=== PATIENT | female | born 1940 | race Caucasian/White ===

== ENCOUNTER 2017-08-30 14:29 | Observation (INO) | payer OTHER ==
[~2017-08-30] VITALS: Ht 162.6 cm; Wt 61.5 kg
[~2017-08-30 14:29] MED LIST: ADULT LOW DOSE81 M1 PO; ASPIRIN E.C.81 M1 PO; EMS NITROSTAT0.4 M1 SL; ISOSORBIDE MONO30 MG PO; KEPPRA500 MG PO; LIPITOR20 MG PO; METFORMIN HCL500 MG PO; PLAVIX75 MG PO; SYNTHROID88 MCG PO; TOPROL XL6.25 MG PO; aspirin PO
[2017-08-30 15:24] LABS: EOSINOPHIL (%) 1.8 % (0-5); EOSINOPHIL COUNT 0.1 K/uL (0-0.3); HEMATOCRIT 37.8 % (36.0-46.0); IMMATURE GRANULOCYTE (%) 0.3 % (0.0-0.7); INSTRUMENT ABS NEUTROPHIL CT 4.8 K/uL; LYMPHOCYTE COUNT 1.3 K/uL (1.0-2.8); MCH 30.7 PG (29.0-34.0); MCHC 33.1 G/DL (30.0-36.0); MCV 92.9 FL (83-99); MEAN PLAT.VOLUME 10.2 uM^3 (9.5-12.4); MONOCYTE (%) 7.5 % (3-12); MONOCYTE COUNT 0.5 K/uL (0-0.8); NEUTROPHIL (%) 70.8 % (45-76); NEUTROPHIL COUNT 4.8 K/uL (1.8-6.4); PLATELET COUNT 213 K/uL (156-360); RBC DIS.WIDTH-CV 11.6 % (11.8-14.6); RBC DIS.WIDTH-SD 39.6 % (39-53); RED BLOOD COUNT 4.07 M/uL (3.80-5.20); WHITE BLOOD COUNT 6.7 K/uL (4.1-10.2)
[2017-08-30 15:30] LABS: PROTHROMBIN TIME 11.3 SEC (10.2-12.9)
[2017-08-30 15:33] LABS: PTT 27.6 SEC (25-37)
[2017-08-30 15:34] LABS: CHLORIDE 104 mEq/L (99-109); POTASSIUM 4.2 mEq/L (3.7-5.4); SODIUM 138 mEq/L (136-147)
[2017-08-30 15:36] LABS: GLUCOSE 169 mg/dL (70-99)
[2017-08-30 15:37] LABS: ANION GAP 8 MEQ/L (2-14)
[2017-08-30 15:38] LABS: TOTAL BILIRUBIN 0.4 mg/dL (0.0-1.0)
[2017-08-30 15:40] LABS: ALKALINE PHOSPHATASE 107 IU/L (3-129); GFR ESTIMATE (CALCULATED) 51 mL/min/
[2017-08-30 15:41] LABS: UREA NITROGEN (BUN) 16 mg/dL (9-23)
[2017-08-30 15:42] LABS: DIRECT BILIRUBIN 0.1 mg/dL (0.0-0.3)
[2017-08-30 15:43] LABS: LIPASE 38 U/L (1.0-51.0)
[2017-08-30 15:45] LABS: TROP-I INTERPRETATION NEGATIVE; TROPONIN-I < 0.01 ng/mL (0.0-0.30)
[2017-08-30 17:14] VITALS: BP 138/80
[2017-08-30 17:24] LABS: TROP-I INTERPRETATION NEGATIVE; TROPONIN-I < 0.01 ng/mL (0.0-0.30)
[2017-08-30 17:28] LABS: HDL CHOLESTEROL 51 MG/DL (Desirable>=50); LDL CHOLESTEROL 46 mg/dL (Desirable<100); NON-HDL CHOLESTEROL 69 mg/dL (Desirable<160); TOTAL CHOLESTEROL 120 mg/dL (Desirable<200); TRIGLYCERIDES 113 MG/DL (Normal: <150)
[2017-08-30 19:18] VITALS: BP 115/61
[2017-08-30 22:46] LABS: TROP-I INTERPRETATION NEGATIVE; TROPONIN-I < 0.01 ng/mL (0.0-0.30)
[2017-08-30 23:15] VITALS: BP 108/53
[2017-08-31 03:25] VITALS: BP 128/60
[2017-08-31 07:32] VITALS: BP 134/63
== END 2017-08-31 10:30 | disposition home or self-care (01) ==
LOC: EME 14:29 → EDOF 16:14 → ENRESERV 16:15 → 5WEST 17:01 → ENPENDDIS 08-31 → 5WEST 08-31 10:30
PROVIDERS: Emergency Medicine; Hospitalist
DX: R07.9 Chest pain, unspecified (principal); I25.10 Atherosclerotic heart disease of native coronary artery without angina pectoris; Z95.5 Presence of coronary angioplasty implant and graft; E11.9 Type 2 diabetes mellitus without complications; E03.9 Hypothyroidism, unspecified; Z82.49 Family history of ischemic heart disease and other diseases of the circulatory system; Z80.3 Family history of malignant neoplasm of breast; Z80.49 Family history of malignant neoplasm of other genital organs; Z82.3 Family history of stroke; Z88.0 Allergy status to penicillin; Z88.2 Allergy status to sulfonamides; Z88.7 Allergy status to serum and vaccine; Z88.5 Allergy status to narcotic agent
CPT/HCPCS: 71020; 80048; 80061; 80076; 83605; 83690; 83880; 84484; 85025; 85610; 85730; 93005; 99281; 99285; G0378; J1650